=== PATIENT | male | born 1960 | race Caucasian/White ===

== ENCOUNTER → 2018-02-26 | Outpatient (CLI) | payer BC ==
[2015-07-15 14:14] VITALS: BP 111/76
[~2018-02-26] MED LIST: AMOX1TAB61 PO; ASPI-482 PO; ATOR20TA PO; LEVO50TA5 PO; LISI2.5T PO; METO25TA4 PO; PRAS10TA9 PO; TICA90TA PO
--- NOTE | 2018-02-26 11:15 | CARD ---
MR#: [id number] Date of Study: 02/26/2018 Ordering Physician: PHIL MARIE, Referring Physician: PHIL MARIE, Tech: Migdalia Craft APPROVED REPORT EXAM: Two-dimensional and M-mode echocardiogram with Doppler and color Doppler. Other Information Quality : AverageHR: 53bpm INDICATION Chest Pain Post MA RISK FACTORS Hypertension Hyperlipidemia 2D DIMENSIONS RVDd2.8 (2.9-3.5cm)Left Atrium(2D)3.3 (1.6-4.0cm) IVSd1.2 (0.7-1.1cm)Aortic Root(2D)3.7 (2.0-3.7cm) LVDd4.7 (3.9-5.9cm)LVOT Diameter2.2 (1.8-2.4cm) PWd0.9 (0.7-1.1cm)IVSs2.6 (0.8-1.2cm) Aortic Valve AoV Peak Edwardo.100.2cm/sAoV VTI21.7cm AO Peak GR.4.0mmHgLVOT Peak Edwardo.77.0cm/s LVOT VTI 17.74cmAO Mean GR.2mmHg KIRA (VMAX)2.21uy6DUX (VTI)3.16cm2 Mitral Valve MV E Vbcstasy64.5cm/sMV DECEL ICCY258fy MV A Nwrhwdiv01.9cm/sMV ISS03ex E/A Ratio1.3MVA (PHT)3.03cm2 TDI E/Lateral E'6.8E/Medial E'6.8 Pulmonary Vein PVa [id number] LEFT VENTRICLE The left ventricle is normal size. There is normal left ventricular wall thickness. The left ventricu lar systolic function is normal and the ejection fraction is within normal range. The Ejection Fracti on is 50-55%. There is normal LV segmental wall motion. Transmitral Doppler flow pattern is normal fo r age. RIGHT VENTRICLE The right ventricle is normal size. There is normal right ventricular wall thickness. The right ventr icular systolic function is normal. ATRIA The left atrium size is normal. The right atrium size is normal. The interatrial septum is intact wit h no evidence for an atrial septal defect or patent foramen ovale as noted on 2-D or Doppler imaging. AORTIC VALVE The aortic valve is normal in structure and function. Doppler and Color Flow revealed no significant aortic regurgitation. There is no significant aortic valvular stenosis. MITRAL VALVE The mitral valve is thickened but opens well. Doppler and Color-flow revealed trace mitral regurgitat ion. TRICUSPID VALVE The tricuspid valve is not well visualized. Doppler and Color Flow revealed no tricuspid valve regurg itation noted. PULMONIC VALVE The pulmonic valve is not well visualized. Doppler and Color Flow revealed trace pulmonic valvular re gurgitation. GREAT VESSELS The aortic root is normal in size. The IVC is normal in size and collapses >50% with inspiration. PERICARDIAL EFFUSION There is no evidence of significant pericardial effusion. Critical Notification Critical Value: No <Conclusion> The left ventricle is normal size. The left ventricular systolic function is normal and the ejection fraction is within normal range. The Ejection Fraction is 50-55%. There is no significant aortic valvular stenosis. Doppler and Color Flow revealed no significant aortic regurgitation. Doppler and Color-flow revealed trace mitral regurgitation. Doppler and Color Flow revealed no tricuspid valve regurgitation noted. Signed by : Phil Marie MD Electronically Approved : 02/26/2018 11:14:11
== END | disposition home or self-care (01) ==
LOC: ECHO 08:28
PROVIDERS: ATTEND Internal Medicine Cardiovascular Disease
DX: R07.9 Chest pain, unspecified (principal); I25.2 Old myocardial infarction; I10 Essential (primary) hypertension; E78.5 Hyperlipidemia, unspecified; I25.10 Atherosclerotic heart disease of native coronary artery without angina pectoris; Z82.49 Family history of ischemic heart disease and other diseases of the circulatory system
CPT/HCPCS: 93306

== ENCOUNTER → 2019-03-04 | Outpatient (CLI) | payer BC ==
[2015-07-15 14:14] VITALS: BP 111/76
--- NOTE | 2019-03-04 12:36 | RAD ---
MR#: [id number] Date of Study: 03/04/2019 Ordering Physician: PHIL PHOENIX, Referring Physician: ARYA MARTI Tech: FAISAL Murphy, AUBRIE (R) (N) APPROVED REPORT Test Type: Exercise Stress Nurse/Tech: Shayy Downing RN Test Indications: CAD Cardiac History: Hypertension,smoker, [place] with 3 stents placed 2014 Medications: See Electronic Medical Record Medical History: See Electronic Medical Record Resting ECG: SR Resting Heart Rate: 61 bpm Resting Blood Pressure: 117/76mmHg Pretest Chest Pain: No chest pain Nurse/Tech Notes S1,S2 and lungs clear to auscultation. Consent: The procedure was explained to the patient in lay terms. Informed consent was witnessed. David eout was entered into [employer]. History and Stress Test performed by RT Fan (R) (N) Stress Symptoms Fatigue,Diaphoretic,Dizziness POST EXERCISE Reason for Termination: Reached target heart rate Target HR: Yes Max HR: 172 bpm 125% of Maximum Predicted HR: 137 bpm Exercise duration: 10:15 min:sec, 3 Stage Exercise capacity: 10.0METs Max Blood Pressure: 143/74mmHg Blood Pressure response to exercise: Normal blood pressure response during stress. Heart Rate response to exercise: WNL Chest Pain: No. Arrhythmia: No. ST Change: Yes. non-specific st/t changes INTERPRETATION Stress EKG Conclusion: No acute evidence of ischemia Imaging Protocol IMAGE PROTOCOL: Rest Tc-99m/stress Tc-99m 1 day Rest: Stress: Viability: Radiopharm.Tc99m VefwzosjkGj97y Sestamibi Rqan57rOs 32mCi Img Date 03/04/2019 03/04/2019 Inj-Img Axub26umc. 60min. Rest Admin Site:IV - Right AntecubitalAdministrator:FAISAL Murphy ARRT (R)(N) Stress Admin Site: IV - Right AntecubitalAdministrator: RT Shimon De La Torre)(N) STRESS DATA End Diast. Vol.94.0mlAv. Heart Rate58.0bpm End Syst. Vol.29.0mlCO Index BSA3.7L/min Myocardial Nbpm237.0gEject. Beahnozf24.0% Stress Rates Pk. Fill Rate2.00EDV/secLVtime Pk. Fill 118.56msec Pk. Empty Rate2.40ESV/secLVtime Pk. Dsfml366.82msec 1/3 Pk. Fill1.56EDV/sec Stress Scores Regional WT1.00Summed WT15.00 Regional WM0.00Summed WM0.00 The rest and stress images show normal perfusion, normal contraction and thickening. LV Perf. Quant 17 Seg. SSS1.00 17 Seg. SRS1.00 17 Seg. SDS0.00 Stress Defect Extent (% LAD)0.00Rest Defect Extent (% LAD)0.00Rev. Defect Extent (% LAD)0.00 Stress Defect Extent (% LCX) 0.00Rest Defect Extent (% LCX)0.00Rev. Defect Extent (% LCX)0.00 Stress Defect Extent (% RCA)0.00Rest Defect Extent (% RCA)0.00Rev. Defect Extent (% RCA)0.00 Stress Defect Extent (% LISBETH)0.00Rest Defect Extent (% LISBETH)0.00Rev. Defect Extent (% LISBETH)0.00 Other Information Quality:Good Risk Assessment: Low Risk Conclusion 1. No evidence of EKG changes with stress testing. 2. Normal perfusion at stress/rest. 3. Low risk study. 4. EF > 60%. Signed by : Jaren King, Electronically Approved : 03/04/2019 12:35:48
== END | disposition home or self-care (01) ==
LOC: NM 15:07
PROVIDERS: ATTEND Internal Medicine Cardiovascular Disease
DX: I25.2 Old myocardial infarction (principal); I10 Essential (primary) hypertension; I21.3 ST elevation (STEMI) myocardial infarction of unspecified site; F17.200 Nicotine dependence, unspecified, uncomplicated
CPT/HCPCS: 78452; 93017; A9500